=== PATIENT | female | born 1995 | race Caucasian/White ===

== ENCOUNTER 2025-04-12 14:48 | Emergency (ER) | payer OTHER, SELFPAY ==
--- NOTE | ~2025-04-12 | XR_ITS ---
EXAMINATION: XR hand RT min 3V DATE: 04/12/2025 15:05 INDICATION: Hand injury. Punched wall TECHNIQUE: 3 images of the right hand were obtained. COMPARISON: None. FINDINGS: Mildly displaced, comminuted and angulated fracture of the distal third of the right fifth metacarpal with adjacent soft tissue swelling. Bone mineralization is within normal limits. No other fracture identified. IMPRESSION: 1. Mildly displaced, comminuted and angulated fracture of the distal third of the right fifth metacarpal with adjacent soft tissue swelling. Reviewed, dictated and finalized at location Q. IMPRESSION: 1. Mildly displaced, comminuted and angulated fracture of the distal third of t he right fifth metacarpal with adjacent soft tissue swelling.
[2025-04-12 14:51] VITALS: BP 125/63; PULSE 70; RESP 18; TEMP 37.1; O2SAT 100
--- NOTE | 2025-04-12 14:51 | ED_ITS ---
HPI - Extremity Injury (Upper) General Chief Complaint: Extremity Injury, Upper Stated Complaint: Right Hand Injury Time Seen by Provider: 04/12/25 14:50 Source: patient Mode of arrival: ambulatory Limitations: no limitations History of Present Illness HPI narrative: Waleska is a 29-year-old female patient presenting to the clinic today with complaints of right hand injury. She reports she was upset yesterday and punched a wall in thinks she punched the stud. States she has had a lot going on currently but does not wish to speak about it. Patient is tearful. Related Data Home Medications ?Medication ?Instructions ?Recorded ?Confirmed ?Last Taken ?Type oxybutynin chloride 5 mg mg PO 04/12/25 Unknown Hist ory tablet,extended release 24 hr Allergies Allergy/AdvReac Type Severity Reaction Status Date / Time No Known Allergies Allergy Verified 04/12/25 14:57 Review of Systems Review of Systems: Pertinent positives per HPI. Patient denies any fever, chills, rash, headache, visual changes, dizziness, cough, runny nose, sore throat, shortness of breath, chest pain, palpitations, nausea, vomiting, diarrhea, constipation, abdominal pain, or any urinary issues. PMFSH Comments At the time of my signature, I reviewed and agree with the nursing past medical, surgical, social, and family history. There is no relevant family history pertinent to the patient complaint. Exam Narrative: General: Well-developed, well nourished, tearful and anxious Head: Normocephalic, atraumatic. Cardio: Regular rate and rhythm, s1 and s2 normal, no murmur appreciated. Resp: Clear to auscultation bilaterally, no rhonchi, rales, wheezing or rubs. Musculoskeletal: No obvious deformity, tender to palpation over the right 5th metacarpal with localized swelling and redness, able to flex and extend the 5th finger with minimal pain, grossly normal range of motion, muscle strength strong and equal, peripheral pulse strong, no edema, no cyanosis, normal gait and station Course Course Emergency Course: Portions of this record may have been created with voice recognition software. Level of Care: Express Care Visit Vital Signs Vital signs: Vital Signs Temperature 37.1 C 04/12/25 14:51 Pulse Rate 70 04/12/25 14:51 Respiratory Rate 18 04/12/25 14:51 Blood Pressure 125/63 04/12/25 14:51 Pulse Oximetry 100 04/12/25 14:51 Oxygen Delivery Room Air 04/12/25 14:51 Temperature 37.1 C 04/12/25 14:51 Pulse Rate 70 04/12/25 14:51 Respiratory Rate 18 04/12/25 14:51 Blood Pressure 125/63 04/12/25 14:51 Pulse Oximetry 100 04/12/25 14:51 Oxygen Delivery Room Air 04/12/25 14:51 Vital signs reviewed MDM - Extremity Injury (Upper) MDM Narrative Medical decision making narrative: At the time of visit patient is resting comfortably on the exam table. Patient appears to be nontoxic. Complaints of right hand injury. She reports she was upset yesterday and punched a wall in thinks she punched the stud. States she has had a lot going on currently but does not wish to speak about it. Patient is tearful. On exam patient has swelling and tenderness over the right 5th metacarpal, X-ray of the right hand was ordered. Ulnar gutter splint, ice pack, and arm sling was ordered. Diagnostics: X-ray of the right hand shows a close mildly displaced angulated/comminuted fracture of the right 5th metacarpal. Plan: Patient has a closed boxer's fracture of the right hand. Ulnar gutter splint, ice pack, and arm sling was plan to the patient. Sensation and circulation was within normal limits after application of the splint. Supportive measures were discussed with the patient and they voiced understanding discharge instructions and agrees to treatment plan. Return precautions reviewed Differential Diagnosis Differential diagnosis: Likely finger sprain, dislocation of finger, fracture of hand and other (Hand contusion, soft tissue injury) Imaging Data Radiologist's impression: ITS Impressions Hand X-Ray 04/12/25 15:13 IMPRESSION: 1. Mildly displaced, comminuted and angulated fracture of the distal third of the right fifth metacarpal with adjacent soft tissue swelling. Discharge Plan Discharge Clinical Impression: Closed boxer's fracture Qualifiers: Encounter type: initial encounter Qualified Code(s): S62.339A - Displaced fracture of neck of unspecified metacarpal bone, initial encounter for closed fracture Patient Disposition: Home Condition: Stable Instructions: Antibiotic Form, Boxer Fracture (ED) Additional Instructions: Rest, ice, elevate, wear ulnar gutter splint, and Amos wrap as directed Tylenol/motrin for pain as discussed. No use of the right hand until cleared by orthopedic provider Follow up with your PCP if symptoms persist more than [address] Felix office on Tuesday to schedule an appointment Patient Language: Belarusian Prescriptions: No Action oxybutynin chloride 5 mg tablet extended release 24hr PO Follow-up/Referrals: Khoi Felix MD [Physician, Orthopedics] - 3 Days Referral Note: Mildly displaced comminuted angulated fracture of the distal 3rd of the right 5th metacarpal with adjacent soft tissue swelling Clinical Impression: Closed boxer's fracture UNKNOWN,DOCTOR [Primary Care Provider] Time of Disposition: 15:30 Quality NIHSS Nursing Documentation ED NIHSS nursing documentation: reviewed/agree
--- OUTSIDE RECORDS SUMMARY | 2025-04-12 14:53 | XMS_ITS | Encounter Summary ---
Author Organization [facility] Address [facility] [place] [address] Care Team Providers Care Finishing Range Supervisor Name Role Phone Love Hameed MD Primary Care Provider [phone] Encounter Details Date Type Department Care Team (Late st Contact Info) Description 11/20/2023 [employer] Message Enc [facility] Medical Group Multispecialty Care - [address] [address] [address] [place] [address] Love Hameed MD [address] [place] [address] [address] [place] [address] FMLA form Social History Tobacco Use Types Packs/Day Years Used Date Smoking Tobacco: Former Cigarettes 1 3 0 08/22/2012 - 08/22/2015 Smokeless Tobacco: Never Comments:Counseled by Dr. Aida villa. Alcohol Use Standard Drinks/Week Comments Yes 1.7 (1 standard drink = 0.6 oz p ure alcohol) I dont drink weekly PHQ-2 Answer Date Recorded Patient Health Questionnaire-2 Score 0 05/31/2023 Comments No Sex and Gender Information Value Date Recorded Sex Assigned at Not on file Legal Sex Female 2:25 PM CDT Gender Identity Not on file Sexual Orientation Not on file documented as of this encounter Plan of Treatment Not on file documented as of this encounter Visit Diagnoses Not on filedocumented in this encounter Additional Health Concerns Assessment Noted Time PHQ-9 Depression Total Score: 0 05/31/20 23 5:28 PM CDT documented as of this encounter Care Teams Finishing Range Supervisor Relationship Specialty Start Date End Date Love Hameed MD [address] [place] [address] [address] [place] [address] PCP - General INTERNAL MEDICINE 05/19/23 documented as of this encounter
--- OUTSIDE RECORDS SUMMARY | 2025-04-12 14:53 | XMS_ITS | Encounter Summary ---
Author Organization [facility] Address [address] [place] [address] Care Team Providers Care Beauty School Instructor Name Role Phone Love Hameed MD Primary Care Provider [phone] Encounter Details Date Type Department Care Team (Late st Contact Info) Description 10/14/2023 [employer] Message Enc [facility] Medical Group Multispecialty Care - [place] [address] [address] [address] [place] [address] [facility] Provider constipation Social History Tobacco Use Types Packs/Day Years [...] documented as of this encounter Care Teams Beauty School Instructor Relationship Specialty Start Date End Date Love Hameed MD [address] [facility] [address] [place], [place] [id number] PCP - General INTERNAL MEDICINE 05/19/23 documented as of this encounter
--- OUTSIDE RECORDS SUMMARY | 2025-04-12 14:53 | XMS_ITS | Clinical Summary ---
Author Organization [facility] Address [address] [place] [address] Care Team Providers Care Clay Processing Factory Worker Name Role Phone No, Physician Primary Care Provider [phone] Allergies Active Allergy Reactions Criticality Noted Date Comments Penicillins Other (See comments) Low 05/18/2023 Pt unsure of reaction, had reaction when she was a kid Medications naproxen (NAPROSYN) 500 mg tabletIndicati ons:Rotator cuff strain, left, initial encounter Take 1 tablet (500 mg total) by mouth 2 (two) times a day with meals P.r.n. pain. Collaborating physician Humberto Barrientos MD 30 tablet 3 Active tiZANidine (ZANAFLEX) 4 mg tablet Take 1 tablet (4 mg total) by mouth every 6 (six) hours as needed (Take as directed to relax muscles) Collaborating physician Humberto Barrientos MD 20 tablet 3 Active Active Problems Problem Noted Date Diagnosed Date Rotator cuff strain, left, initial encounter Social History Tobacco Use Types Packs/Day Years Used Date Smoking Tobacco: Never Assessed Personal Safety Answer Date Recorded Have you ever been in or are you currently in a harmful physical or emotional relationship or is someone making you feel afraid or unsafe? Denies 05/18/2023 Comments Unknown Sex and Gender Information Value Date Recorded Sex Assigned at Not on file Legal Sex Female 3:05 PM CDT Gender Identity Not on file Sexual Orientation Not on file Obstetrics History Last Filed Vital Signs Vital Sign Reading Time Taken Comments Blood Pressure 104/63 05/18/2023 3:15 PM CDT Pulse 81 05/18/2023 3:15 PM CDT Temperature 37.2 C (99 F) 05/18/2023 3:15 PM CDT Respiratory Rate 18 05/18/2023 3:15 PM CDT Oxygen Saturation 99% 05/18/2023 3:15 PM CDT Inhaled Oxygen Concentration - - Weight 63.5 kg (140 lb) 05/18/2023 3:15 PM CDT Height 149.9 cm (4' 11) 05/18/2023 3:15 PM CDT Body Mass Index 28.28 05/18/2023 3:15 PM CDT Plan of Treatment Health Maintenance Due Date Last Done Comments Cervical Cancer Screening 1993 Depression Screening 1993 Hepatitis C Screening 1993 Varicella Vaccines (1 of 2 - 13+ 2-dose series) 2006 Hepatitis B Screening 2011 Regular Well Visit/Exam 18-64 2011 HPV Vaccines (1 - 3-dose SCD M series) 2020 Influenza Vaccine (#1) 2025 DTaP/Tdap/Td Vaccine (2 - Td or Tdap) 10/05/2028 10/05/2018 Pneumococcal vaccine <65 Aged Out No longer eligible based on patient's age to complete this topic Insurance [facility] CIG Care Teams Clay Processing Factory Worker Relationship Specialty Start Date End Date No, Physician PCP - General 05/18/23
--- OUTSIDE RECORDS SUMMARY | 2025-04-12 14:53 | XMS_ITS | Clinical Summary ---
Author Organization [facility] Address [address] [place] [address] Care Team Providers Care Automotive Brake Specialist Name Role Phone Love Hameed MD Primary Care Provider [phone] Allergies Active Allergy Reactions Criticality Noted Date Comments Penicillins Other (see comment),Unknown Low 1993 Pt unsure of reaction, had reaction when she was a kid Medications albuterol sulfate HFA 108 (90 Base) MCG/ACT inhalerIndication s:Mild intermittent asthma without complication (HHS/HCC) Inhale 2 puffs into the lungs 4 (four) times daily. 18 g 5 3 Active aluminum chloride (DRYSOL) 20 % external solutionIndicatio ns:Hyperhidrosis of axilla Apply topically nightly at bedtime. 60 mL 1 4 Active chlorhexidine (HIBICLENS) 4 % SolutionIndicatio ns:Abnormal body odor Apply topically daily as needed. 3785 mL 4 Active oxybutynin XL (DITROPAN-XL) 5 MG 24 hr tabletIndications :Vasomotor flushing Take 1 tablet (5 mg total) by mouth daily. 90 tablet 1 4 Active Active Problems No known active problems Immunizations Immunization Administration Dates Next Due Tdap (Generic) 10/05/2018 Family History Medical History Relation Comments Drug Abuse Brother COPD Father Depression Father Diabetes Father Hypertension Father Mental Health Father Stroke Maternal Grandmother Arthritis Mother Depression Mother Mental Health Mother Stroke Paternal Aunt Diabetes Paternal Uncle Relation Status Comments Brother Father Maternal Grandmother Mother Paternal Aunt Paternal Uncle Social History Tobacco Use Types Packs/Day Years Used Date Smoking Tobacco: Former Cigarettes 1 3 0 08/22/2012 - 08/22/2015 Smokeless Tobacco: Never Tobacco Cessation:Counseling Given: Yes Comments:Counseled by Dr. Hameed. Alcohol Use Standard Drinks/Week Comments Yes 1.7 (1 standard drink = 0.6 oz p ure alcohol) I dont drink weekly PHQ-2 Answer Date Recorded Patient Health Questionnaire-2 Score 1 07/04/2024 Comments No Sex and Gender Information Value Date Recorded Sex Assigned at Not on file Legal Sex Female 2:25 PM CDT Gender Identity Not on file Sexual Orientation Not on file Last Filed Vital Signs Vital Sign Reading Time Taken Comments Blood Pressure 95/59 07/04/2024 11:15 AM ON AWAKE COUNSELOR Pulse 77 07/04/2024 11:15 AM ON AWAKE COUNSELOR Temperature 37 C (98.6 F) 07/04/2024 11:15 AM ON AWAKE COUNSELOR Respiratory Rate 18 07/04/2024 11:15 AM ON AWAKE COUNSELOR Oxygen Saturation 97% 07/04/2024 11:15 AM ON AWAKE COUNSELOR Inhaled Oxygen Concentration - - Weight 67.4 kg (148 lb 9.6 oz) 07/04/2024 11:15 AM ON AWAKE COUNSELOR Height 149.9 cm (4' 11) 07/04/2024 11:15 AM ON AWAKE COUNSELOR Body Mass Index 30.01 07/04/2024 11:15 AM ON AWAKE COUNSELOR Plan of Treatment Health Maintenance Due Date Last Done Comments Cervical Cancer Screening Pa p Smear (Age 30 to 64) Every 3 Years 1993 Hepatitis C 2011 Hepatitis B Vaccines (1 of 3 - 19+ 3-dose series) 2012 HPV Vaccines (1 - 3-dose SCD M series) 2020 Cervical Cancer Screening Pa p with HPV Testing (Age 30 to 64) Every 5 Years 2023 Cervical Cancer Screening wi th HPV 2023 COVID-19 Vaccine (3 - 2023-2 5 season) 2024 01/08/2021, 12/11/2020 Annual Physical 05/31/2024 05/31/2023 PHQ-2 (Physician Josephine) 08/22/2024 07/04/2024 DTaP, Tdap and Td Vaccines ( 2 - Td or Tdap) 10/05/2028 10/05/2018 Meningococcal B Vaccine Aged Out No l onger eligible based on patient's age to complete this topic Meningococcal Vaccine Aged Out No josey robert eligible based on patient's age to complete this topic Pneumococcal Vaccine: Pediatrics (0 to 5 Years) and At-Risk Patients (6 to 49 Years) Aged Out No longer eligible b ased on patient's age to complete this topic RSV Immunizations Under 20 Months Aged Out No longer eligible b ased on patient's age to complete this topic Insurance CIG Care Teams Automotive Brake Specialist Relationship Specialty Start Date End Date Love Hameed MD [address] [address] PCP - General INTERNAL MEDICINE 05/19/23
--- OUTSIDE RECORDS SUMMARY | 2025-04-12 14:53 | XMS_ITS | Encounter Summary ---
Author Organization [facility] Address [facility] [place] [address] Care Team Providers Care Straddle Carrier Operator Name Role Phone Love Hameed MD Primary Care Provider Encounter Details Date Type Department Care Team (Late st Contact Info) Description 10/10/2023 [employer] Message Enc [facility] Medical Group Multispecialty Care - [address] [address] [address] [place] [address] [place] [address] [place] [address] [address] [place] [address] IBS OTC meds Social History Tobacco Use Types Packs/Day Years [...] documented as of this encounter Care Teams Straddle Carrier Operator Relationship Specialty Start Date End Date Love Hameed MD [address] [place] [address] [address] [place] [address] PCP - General INTERNAL MEDICINE 05/19/23 documented as of this encounter
--- OUTSIDE RECORDS SUMMARY | 2025-04-12 14:53 | XMS_ITS | Clinical Summary ---
Author Organization [facility] Address [address] [facility] [place] [address] Care Team Providers Care Air Value Tester Name Role Phone None, Physician Primary Care Provider Unavailabl e Source Comments [facility],non-owned Affiliates and Associated Physician Practices is amultiple site organization consisting of ambulatory clinics and hospital sitesin [place] and [place]. This disclosure is being madepursuant to the Care Everywhere program and may not contain all information available regarding this patient. Last updated 18.[facility] [employer] Social History Tobacco Use Types Packs/Day Years Used Date Smoking Tobacco: Never Assessed Comments Unknown Sex and Gender Information Value Date Recorded Sex Assigned at Not on file Legal Sex Female 2:28 PM CDT Gender Identity Not on file Sexual Orientation Not on file Plan of Treatment Health Maintenance Due Date Last Done Comments HIV SCREENING 2008 HEPATITIS C SCREENING 09/14/2011 DTAP/TDAP/TD VACCINES (1 - Tdap) 2012 HEPATITIS B VACCINE (1 of 3 - 19+ 3-dose series) 2012 PAP SMEAR 2014 HPV VACCINE (1 - 3-dose SCDM series) 2020 COVID-19 VACCINE (1 - 2023-2 5 season) 2024 DEPRESSION SCREENING 08/22/2024 INFLUENZA VACCINE (#1) 2025 ZOSTER VACCINE (1 of 2) 2043 HIB VACCINE Aged Out No longer eligi ble based on patient's age to complete this topic MENINGOCOCCAL (Group B) VACC INE SHARED DECISION-MAKING Aged Out No longer eligibl e based on patient's age to complete this topic MENINGOCOCCAL GROUPS A/C/Y/W VACCINE Aged Out No longer eligible b ased on patient's age to complete this topic PNEUMOCOCCAL VACCINE Aged Out No long er eligible based on patient's age to complete this topic Insurance [employer]IG[employer] Care Teams Air Value Tester Relationship Specialty Start Date End Date None, Physician [address] [place] [address] PCP - General 04/18/23
--- OUTSIDE RECORDS SUMMARY | 2025-04-12 14:53 | XMS_ITS | Encounter Summary ---
Author Organization [facility] Address [address] [place] [address] Care Team Providers Care Delicatessen Store Manager Name Role Phone Love Hameed MD Primary Care Provider [phone] Encounter Details Date Type Department Care Team (Late st Contact Info) Description 11/08/2023 [employer] Message Enc [facility] Medical Group Multispecialty Care - [place] [address] [address] [address] [place] [address] Love Hameed MD [address] [place] [id number] FMLA Social History Tobacco Use Types Packs/Day Years [...] documented as of this encounter Care Teams Delicatessen Store Manager Relationship Specialty Start Date End Date Love Hameed MD [address] [place], [place] [id number] PCP - General INTERNAL MEDICINE 05/19/23 documented as of this encounter
--- OUTSIDE RECORDS SUMMARY | 2025-04-12 14:53 | XMS_ITS | Encounter Summary ---
Author Organization [facility] Address [facility] [place] [address] Care Team Providers Care Mattress And Foundation Sewer Name Role Phone Love Hameed MD Primary Care Provider [phone] Encounter Details Date Type Department Care Team (Late st Contact Info) Description 10/17/2023 [employer] Message Enc [facility] Medical Group Multispecialty Care - [place] [address] [address] [address] [place], [place] [id number] [facility] Provider Lab Results Social History Tobacco Use Types Packs/Day Years [...] Time PHQ-9 Depression Total Score: 0 05/31/20 5:28 PM CDT documented as of this encounter Care Teams Mattress And Foundation Sewer Relationship Specialty Start Date End Date Love Hameed MD [address] [facility] [address] [place], [place] [phone] PCP - General INTERNAL MEDICINE 05/19/23 documented as of this encounter
== END 2025-04-12 15:54 | disposition home or self-care (01) ==
PROVIDERS: Emergency Provider Nurse Practitioner Family
DX: S62.339A Displaced fracture of neck of unspecified metacarpal bone, initial encounter for closed fracture (principal); W22.09XA Striking against other stationary object, initial encounter
CPT/HCPCS: 29125; 73130; 99204; A4565; G0463